=== PATIENT | male | born 1940 | race Caucasian/White ===

== ENCOUNTER 2016-08-17 16:54 | Inpatient (IN) ==
[2016-08-17] MEDS ORDERED: Naloxone 0.4 MG/ML INJ IVP PRN (20:12)
[2016-08-17] MEDS ORDERED: Ondansetron 4 MG/2 ML VIAL IVP PRN (20:12)
[2016-08-17] MEDS ORDERED: Acetaminophen 325 MG TABLET PO PRN (20:12)
--- NOTE | 2016-08-17 20:22 | Internal Med History&Physical ---
Date of Encounter: 08/17/16 Time of Encounter: 19:45 Assessment and Plan (1) Anemia Current visit: Yes Status: Acute Acute blood loss anemia due to likely diverticular lower GI bleed. Hb improved to 9.2 after 2units PRBC transfusion; bleeding currently controlled; continue to monitor Hb closely; continue to hold ASA and Brilinta for now; Qualifiers: Anemia type: other cause Other causes of anemia: acute posthemorrhagic Qualified Code(s): D62 - Acute posthemorrhagic anemia (2) Diverticulitis Current visit: Yes Status: Acute CT abdomen shows possible diverticulitis. Continue IV Ciprofloxacin and Flagyl; diet as tolerated; needs outpatient Colonoscopy after acute inflammation subsides; Qualifiers: Diverticulitis site: large intestine Diverticulitis bleeding: with bleeding Diverticulitis complication: without perforation or abscess Qualified Code(s): K57.33 - Diverticulitis of large intestine without perforation or abscess with bleeding (3) Coronary artery disease Current visit: Yes Status: Chronic Hold ASA and Brilinta for now due to active GI bleed; continue statin; Qualifiers: Coronary Disease-Associated Artery/Lesion type: [place] artery [place] vs. transplanted heart: [place] heart Associated angina: without angina Qualified Code(s): I25.10 - Atherosclerotic heart disease of [place] coronary artery without angina pectoris (4) Gout Current visit: Yes Status: Chronic Qualifiers: Gout site: unspecified site Gout etiology: unspecified cause Chronicity: chronic Presence of tophus: without tophus Qualified Code(s): M1A.9XX0 - Chronic gout, unspecified, without tophus (tophi) (5) GERD (gastroesophageal reflux disease) Current visit: Yes Status: Chronic Qualifiers: Esophagitis presence: esophagitis presence not specified Qualified Code(s) : K21.9 - Gastro-esophageal reflux disease without esophagitis (6) HTN (hypertension) Current visit: Yes Status: Chronic BP well-controlled; resume home meds; Qualifiers: Hypertension type: essential hypertension Qualified Code(s): I10 - Essential (primary) hypertension (7) COPD (chronic obstructive pulmonary disease) Current visit: Yes Status: Chronic not in acute exacerbation; continue bronchodilators and supplemental O2 PRN; Qualifiers: COPD type: chronic bronchitis Chronic bronchitis type: unspecified Qualified Code(s): J42 - Unspecified chronic bronchitis Internal Medicine - H&P: HPI Chief complaint: Hematochezia Admitted From: Hospital to Hospital Transfer Plans for Post Hospital Care: Home History of present illness: Mr. Klein is a 75 year old male presenting with c/o- bloody diarrhea since 2 days. Patient has been admitted at [facility] overnight and has been transferred to [place] per patient request. He reports having sudden onset of hematochezia/bright red bleeding per rectum with intermittent suspected clots along with brown bowel movements; diarrhea about 5-6 times/day. no melena, nausea, vomiting. He reports mild diffuse abdominal discomfort but no severe or specific pain. No fever/chills. No similar previous episodes but he did have h/o - bleeding gastric ulcers in the past. Last colonoscopy was 5-6 years ago, which showed internal hemorrhoids per patient. Patient had a significant drop in Hb to less than 7 and received 2units PRBC transfusion at [place]. Past Med Surg Social Fam HX - Past Medical History Medical history: COPD, coronary artery disease, GERD, GI bleed, hyperlipidemia, hypertension, myocardial infarction Psychiatric history: no psych history - Past Surgical History Surgical History: angioplasty/stent - Social History Smoking Status: Former smoker Smokeless Tobacco Status: No Alcohol use: none Drug use: none Occupational status: retired Current living situation: Home, With Family Activity Level: Independent ambulation Recent Out of Country Travel Within the Last 8 Weeks: No Exposure or Possible Exposure to Illness During Travel: No - Family History Mother Living Status: Age at : 92 Cause of : Skin Cancer Hx Family Cardiac Disorders: Yes Hx Family Respiratory Disorders: Yes (COPD) Hx Family Cancer: Yes (Skin, throat) Hx Family GI Disorders: No Hx Family Genitourinary Disorders: No Hx Family Endocrine Disorder: No Hx Family Musculoskeletal Disorders: No Hx Family Neuromuscular Disorders: No Hx Family Neurologic Disorders: No Hx Family HEENT Disorders: Yes Hx Family Autoimmune Disorders: No Hx Family Reproductive Disorders: No Hx Family Psychosocial Disorders: No Hx Family Medical Disorders: No Internal Medicine - H&P: Meds Atorvastatin [Lipitor] 40 mg PO HS 12/24/15 [History] Carvedilol 3.125 mg PO BID 12/24/15 [History] Nitroglycerin [Nitrostat] 0.4 mg SL Q5M PRN 12/24/15 [History] Omeprazole [PriLOSEC] 20 mg PO BID 12/24/15 [History] Furosemide [Lasix] 20 mg PO DAILY 03/30/16 [History] Potassium Chloride [Klor-Con Sprinkle] 10 meq PO DAILY 03/30/16 [History] Allopurinol [Zyloprim] 300 mg PO DAILY 08/16/16 [History] Aspirin Enteric Coated [Aspirin EC] 81 mg PO DAILY 08/17/16 [History] Ticagrelor [Brilinta] 90 mg PO BID 08/17/16 [History] Allergies No Known Allergies Allergy (Verified 02/09/16 13:15) All Systems PM: A 10-system review of systems was performed and is negative for pertinent findings except as documented above in the HPI. - Constitutional Constitutional: no chills, no fever(s), no night sweats - EENT Eyes: no change in vision, no discharge, no pain, no photophobia Ears: no ear discharge, no ear pain, no tinnitus Nose, mouth and throat: no dysphagia, no nasal discharge, no neck pain, no sore throat - Cardiovascular Cardiovascular ROS IM: no chest pain, no diaphoresis, no dyspnea, no lightheadedness, no palpitations, no syncope - Respiratory Respiratory: no cough, no dyspnea, no wheezing, no excessive phlegm production - Gastrointestinal Gastrointestinal: abdominal pain, diarrhea, hematochezia, loose stools - Musculoskeletal Musculoskeletal ROS IM: no numbness, no tingling - Integumentary Integumentary IM: no rash, no unusual bruising - Neurological Neurological ROS: no confusion, no convulsions, no focal weakness, no numbness, no tingling, no tremor(s) - Hematologic/Lymphatic Hematologic/Lymphatic: no easy bruising - Constitutional Vitals: Temp Pulse Resp BP Pulse Ox 98.5 F 77 16 131/74 99 08/17/16 18:30 08/17/16 18:30 08/17/16 18:30 08/17/16 18:30 08/17/16 18:30 General appearance: Present: A&O X 3, answers questions appropriately - Respiratory Respiratory exam: Present: CTAB. Absent: accessory muscle use, rales, rhonchi, wheezes - Cardiovascular Cardiovascular exam: Present: RRR, +S1, +S2. Absent: diastolic murmur, gallop, rubs, systolic murmur - GI/Abdominal GI/Abdominal exam: Present: normal bowel sounds, soft (obese, mild diffuse tenderness, no guarding/rigidity), no peritoneal signs. Absent: distended, tenderness - Extremities Exam Extremities exam: Present: full ROM, warm, radial pulses palpable and symetrical. Absent: calf tenderness, cyanotic, pedal edema - Neurological Exam Neurological exam: Present: CN II-XII intact, oriented X3, no focal deficits. Absent: pronater drift, facial droop, speech deficit - Skin Skin exam: Present: dry, intact
[2016-08-17] MEDS: MetroNIDAZOLE 500 MG/100 ML 500 MG/100 ML BAG IVPB SCH (23:42)
[2016-08-18 06:27] LABS: BUN/Creatinine Ratio 17 (6-26); Blood Urea Nitrogen 15 mg/dL (8-26); Calcium 8.4 mg/dL (8.6-10.8); Carbon Dioxide 22 mEq/L (19-29); Chloride 109 mEq/L (98-109); Glucose 98 mg/dL (70-99); Osmolality,Calculated 289 (280-300); Potassium 3.3 mEq/L (3.5-4.5); Sodium 139 mEq/L (136-145); eGFR For African Americans > 60 (> 60); eGFR For Non-African Americans > 60 (> 60)
[2016-08-18 06:39] LABS: Basophils % 0.4 %; Hemoglobin 8.4 g/dL (12.9-16.9); Red Cell Distribution Width 16.8 % (11.5-14.5)
[2016-08-18 06:43] LABS: Eosinophils # 0.2 K/mcL (0.0-0.6); Eosinophils % 4.6 %; Hematocrit 24.5 % (37.5-50.1); Immature Granulocytes % 0.6 % (0-4); Immature Platelets 6.8 % (1.1-6.1); Lymphocytes # 1.5 K/mcL (0.6-4.6); Lymphocytes % 30.7 %; Mean Corpuscular HGB Conc 34.3 g/dL (31.6-35.5); Mean Corpuscular Hemoglobin 29.1 pg (28.0-33.3); Mean Corpuscular Volume 84.8 fL (83.0-100.0); Mean Platelet Volume 12.2 fL (9.4-12.4); Monocytes # 0.5 K/mcL (0.0-1.3); Monocytes % 10.6 %; Neutrophils # 2.6 K/mcL (1.6-8.9); Red Blood Count 2.89 M/mcL (4.19-5.50); Segmented Neutrophils % 53.1 %
[2016-08-18 07:15] LABS: Platelet Count 93 K/mcL (140-400)
[2016-08-18] MEDS: MetroNIDAZOLE 500 MG/100 ML 500 MG/100 ML BAG IVPB SCH ×3 (07:56→23:41)
--- NOTE | 2016-08-18 09:17 | Internal Med Progress Note ---
Date of Encounter: 08/18/16 Time of Encounter: 09:13 - Assessment and plan (1) Thrombocytopenia Current Visit: Yes Status: Acute Assessment and plan: Chart review-patient's baseline PLT >200 PLT today 93 Obtain LFT Continue to monitor Possibly secondary to bleed Will transfuse if bleeding recurs, or PLT <50K Recheck CBC today p.m (2) Anemia Current Visit: Yes Status: Acute Assessment and plan: Blood loss anemia from LGIB from hemorrhoids/diverticulitis s/p 1 unit RBC Continue to monitor Hb Possible d/c a.m if Hb remains stable Qualifiers: Anemia type: other cause Other causes of anemia: acute posthemorrhagic Qualified Code(s): D62 - Acute posthemorrhagic anemia (3) Diverticulitis Current Visit: Yes Status: Acute Assessment and plan: Afebrile, no leukocytosis Continue cipro/flagyl Cardiac diet Qualifiers: Diverticulitis site: large intestine Diverticulitis bleeding: with bleeding Diverticulitis complication: without perforation or abscess Qualified Code(s): K57.33 - Diverticulitis of large intestine without perforation or abscess with bleeding (4) COPD (chronic obstructive pulmonary disease) Current Visit: Yes Status: Chronic Assessment and plan: Chronic, stable [place] prn Qualifiers: COPD type: chronic bronchitis Chronic bronchitis type: unspecified Qualified Code(s): J42 - Unspecified chronic bronchitis (5) Coronary artery disease Current Visit: Yes Status: Chronic Assessment and plan: Resume ASA/Brilinta/Statin Patient with 3 PILAR 12/2015 Bleeding has stopped for now Benefits of resuming brilinta/ASA outweigh the risks Monitor HB closely No need for cardio eval at this time Qualifiers: Coronary Disease-Associated Artery/Lesion type: [place] artery [place] vs. transplanted heart: [place] heart Associated angina: without angina Qualified Code(s): I25.10 - Atherosclerotic heart disease of [place] coronary artery without angina pectoris (6) GERD (gastroesophageal reflux disease) Current Visit: Yes Status: Chronic Assessment and plan: Resume home meds Qualifiers: Esophagitis presence: esophagitis presence not specified Qualified Code(s) : K21.9 - Gastro-esophageal reflux disease without esophagitis (7) Gout Current Visit: Yes Status: Chronic Assessment and plan: Resume home meds Qualifiers: Gout site: unspecified site Gout etiology: unspecified cause Chronicity: chronic Presence of tophus: without tophus Qualified Code(s): M1A.9XX0 - Chronic gout, unspecified, without tophus (tophi) (8) HTN (hypertension) Current Visit: Yes Status: Chronic Assessment and plan: Controlled, continue current meds Qualifiers: Hypertension type: essential hypertension Qualified Code(s): I10 - Essential (primary) hypertension (9) Lower gastrointestinal hemorrhage Current Visit: Yes Status: Acute Assessment and plan: As in anemia Presence of diverticulitis, for colonoscopy as out-patient when diverticulitis resolves (10) Obesity Current Visit: Yes Status: Chronic Assessment and plan: Lifestyle modification Qualifiers: Obesity type: due to excess calories Obesity severity: unspecified obesity severity Qualified Code(s): E66.09 - Other obesity due to excess calories - Subjective Interval history: Seen and evaluated at bedside 75 M with PMH of Internal hemorrhoids, last colonoscopy 5 years ago (said to be normal save for hemorrhoids), CAD s/p stents placed in 12/2015 (X3), on ASA/ Brilinta, Gout, GERD Patient was transferred here from [place] for management of acute blood loss anemia from LGIB, and diverticulitis ASA/Brilinta held by referral center Patient reports he has not had any BM since 08/15 except bloody stools, however reports he has not had any more bleeding since arrival here Hb at referral center was 6.4, s/p 1 unit transfusion HB today 8.4, PLT 93K - Constitutional Vitals: Temp Pulse Resp BP Pulse Ox 98.0 F 71 16 137/70 98 08/18/16 06:56 08/18/16 06:56 08/18/16 06:56 08/18/16 06:56 08/18/16 06:56 General appearance: Present: A&O X 3, pleasant, no acute distress, answers questions appropriately - Head Head exam: Present: atraumatic, normocephalic - Eye Eye exam: Present: PERRL, conjuntiva pink, sclera anicteric Pupils: Present: PERRL - Neck Neck exam general surgery: Present: supple, trachea midline. Absent: lymphadenopathy - Respiratory Respiratory exam: Present: CTAB. Absent: accessory muscle use, rales, rhonchi, wheezes - Cardiovascular Cardiovascular exam: Present: RRR, +S1, +S2. Absent: diastolic murmur, gallop, rubs, systolic murmur - GI/Abdominal GI/Abdominal exam: Present: normal bowel sounds, soft, tenderness (vague tenderness, generalized. ), no peritoneal signs. Absent: distended - Extremities Exam Extremities exam: Present: warm, radial pulses palpable and symetrical. Absent : calf tenderness, cyanotic, pedal edema - Neurological Exam Neurological exam: Present: alert, CN II-XII intact, oriented X3, no focal deficits. Absent: pronater drift, facial droop, speech deficit - Skin Skin exam: Present: dry, intact Internal Medicine: Result - Labs CBC & Chem 7: 08/18/16 05:40 08/18/16 05:40 Labs: Short CBC 08/18/16 Range/Units 05:40 WBC 4.8 (4.3-11.1) K/mcL Hgb 8.4 L (12.9-16.9) g/dL Hct 24.5 L (37.5-50.1) % Plt Count 93 L (140-400) K/mcL Neutrophils # 2.6 (1.6-8.9) K/mcL BMP 08/18/16 05:40 Sodium 139 Potassium 3.3 L Chloride 109 Carbon Dioxide 22 BUN 15 Creatinine 0.88 Glucose 98 Calcium 8.4 L Consult Discharge Plan - Plan Referrals: Vadim Jacobsen DO [Primary Care Provider] -
[2016-08-18] MEDS: Aspirin Enteric Coated 81 MG Tablet PO SCH (11:37)
[2016-08-18] MEDS: *HR* Ticagrelor 90 MG TABLET PO SCH ×2 (11:37→21:09)
[2016-08-18 17:28] LABS: Basophils % 0.2 %; Hemoglobin 8.4 g/dL (12.9-16.9)
[2016-08-18 17:29] LABS: Eosinophils # 0.2 K/mcL (0.0-0.6); Eosinophils % 3.9 %; Hematocrit 24.7 % (37.5-50.1); Immature Granulocytes % 0.9 % (0-4); Immature Platelets 7.1 % (1.1-6.1); Lymphocytes # 1.4 K/mcL (0.6-4.6); Lymphocytes % 30.6 %; Mean Corpuscular Hemoglobin 29.4 pg (28.0-33.3); Mean Corpuscular Volume 86.4 fL (83.0-100.0); Mean Platelet Volume 12.5 fL (9.4-12.4); Monocytes # 0.5 K/mcL (0.0-1.3); Monocytes % 10.2 %; Neutrophils # 2.4 K/mcL (1.6-8.9); Red Blood Count 2.86 M/mcL (4.19-5.50); Red Cell Distribution Width 16.9 % (11.5-14.5); Segmented Neutrophils % 54.2 %
[2016-08-18 17:32] LABS: Platelet Count 94 K/mcL (140-400)
[2016-08-18 17:47] LABS: Platelet Estimate Decreased (Normal); Polychromasia 1+ (Not Present)
[2016-08-18 17:49] LABS: Burr Cells 1+ (Not Present)
[2016-08-18 20:52] LABS: Albumin 2.8 g/dL (3.5-5.0); Albumin/Globulin Ratio 1.3 (1.1-2.2); Bilirubin,Direct 0.3 mg/dL (0.0-0.5); Bilirubin,Indirect 0.4 mg/dL (0.0-1.2); Bilirubin,Total 0.7 mg/dL (0.2-1.2); Globulin 2.1 g/dL (2.4-3.5); Total Protein 4.9 g/dL (6.0-8.3)
[2016-08-19 03:54] LABS: Basophils % 0.4 %; Eosinophils # 0.2 K/mcL (0.0-0.6); Eosinophils % 3.8 %; Hematocrit 25.3 % (37.5-50.1); Hemoglobin 8.5 g/dL (12.9-16.9); Immature Granulocytes % 0.6 % (0-4); Lymphocytes # 1.6 K/mcL (0.6-4.6); Lymphocytes % 29.7 %; Mean Corpuscular HGB Conc 33.6 g/dL (31.6-35.5); Mean Corpuscular Volume 86.3 fL (83.0-100.0); Mean Platelet Volume 12.1 fL (9.4-12.4); Monocytes # 0.5 K/mcL (0.0-1.3); Monocytes % 10.1 %; Neutrophils # 2.9 K/mcL (1.6-8.9); Platelet Count 103 K/mcL (140-400); Red Blood Count 2.93 M/mcL (4.19-5.50); Red Cell Distribution Width 16.9 % (11.5-14.5); Segmented Neutrophils % 55.4 %
[2016-08-19 03:58] LABS: BUN/Creatinine Ratio 13 (6-26); Blood Urea Nitrogen 12 mg/dL (8-26); Calcium 8.5 mg/dL (8.6-10.8); Carbon Dioxide 23 mEq/L (19-29); Chloride 110 mEq/L (98-109); Glucose 99 mg/dL (70-99); Osmolality,Calculated 290 (280-300); Potassium 3.7 mEq/L (3.5-4.5); Sodium 140 mEq/L (136-145); eGFR For African Americans > 60 (> 60); eGFR For Non-African Americans > 60 (> 60)
[2016-08-19 07:10] VITALS: BP 129/71
[2016-08-19] MEDS: MetroNIDAZOLE 500 MG/100 ML 500 MG/100 ML BAG IVPB SCH (08:25)
[2016-08-19] MEDS: *HR* Ticagrelor 90 MG TABLET PO SCH (08:26)
[2016-08-19] MEDS: Aspirin Enteric Coated 81 MG Tablet PO SCH (08:26)
--- NOTE | 2016-08-19 09:25 | Discharge Summary ---
Date of Encounter: 08/19/16 Time of Encounter: 09:24 - Discharge Diagnosis (1) Thrombocytopenia Priority: Primary Status: Acute (2) Anemia Priority: Primary Status: Acute Qualifiers: Anemia type: other cause Other causes of anemia: acute posthemorrhagic Qualified Code(s): D62 - Acute posthemorrhagic anemia (3) Diverticulitis Priority: Primary Status: Acute Qualifiers: Diverticulitis site: large intestine Diverticulitis bleeding: with bleeding Diverticulitis complication: without perforation or abscess Qualified Code(s): K57.33 - Diverticulitis of large intestine without perforation or abscess with bleeding (4) COPD (chronic obstructive pulmonary disease) Priority: Secondary Status: Chronic Qualifiers: COPD type: chronic bronchitis Chronic bronchitis type: unspecified Qualified Code(s): J42 - Unspecified chronic bronchitis (5) Coronary artery disease Priority: Secondary Status: Chronic Qualifiers: Coronary Disease-Associated Artery/Lesion type: [place] artery [place] vs. transplanted heart: [place] heart Associated angina: without angina Qualified Code(s): I25.10 - Atherosclerotic heart disease of [place] coronary artery without angina pectoris (6) GERD (gastroesophageal reflux disease) Priority: Secondary Status: Chronic Qualifiers: Esophagitis presence: esophagitis presence not specified Qualified Code(s) : K21.9 - Gastro-esophageal reflux disease without esophagitis (7) Gout Priority: Secondary Status: Chronic Qualifiers: Gout site: unspecified site Gout etiology: unspecified cause Chronicity: chronic Presence of tophus: without tophus Qualified Code(s): M1A.9XX0 - Chronic gout, unspecified, without tophus (tophi) (8) HTN (hypertension) Priority: Secondary Status: Chronic Qualifiers: Hypertension type: essential hypertension Qualified Code(s): I10 - Essential (primary) hypertension (9) Lower gastrointestinal hemorrhage Priority: Primary Status: Suspected (10) Obesity Priority: Secondary Status: Chronic Qualifiers: Obesity type: due to excess calories Obesity severity: unspecified obesity severity Qualified Code(s): E66.09 - Other obesity due to excess calories - Discharge Medications Prescriptions: Ciprofloxacin [Cipro] 500 mg PO BID #10 tablet metroNIDAZOLE [Flagyl] 500 mg PO Q8H #15 tablet Home Medications: Atorvastatin [Lipitor] 40 mg PO HS 12/24/15 [History] Carvedilol 3.125 mg PO BID 12/24/15 [History] Nitroglycerin [Nitrostat] 0.4 mg SL Q5M PRN 12/24/15 [History] Omeprazole [PriLOSEC] 20 mg PO BID 12/24/15 [History] Furosemide [Lasix] 20 mg PO DAILY 03/30/16 [History] Potassium Chloride [Klor-Con Sprinkle] 10 meq PO DAILY 03/30/16 [History] Allopurinol [Zyloprim] 300 mg PO DAILY 08/16/16 [History] Aspirin Enteric Coated [Aspirin EC] 81 mg PO DAILY 08/17/16 [History] Ticagrelor [Brilinta] 90 mg PO BID 08/17/16 [History] Ciprofloxacin [Cipro] 500 mg PO BID #10 tablet 08/19/16 [Rx] metroNIDAZOLE [Flagyl] 500 mg PO Q8H #15 tablet 08/19/16 [Rx] Allergies/Adverse Reactions: Allergies No Known Allergies Allergy (Verified 02/09/16 13:15) Date of admission: 08/18/16 03:13 Primary care physician: Vadim Jacobsen Discharging clinician: Mono Jaimes Anticipated date of discharge: 08/19/16 - Patient Status Disposition: Home, Self-Care Condition: Fair Functional capacity at discharge: independent ambulation Overall status at discharge: patient is back to baseline - Discharge Instructions Follow Up With: Vadim Jacobsen DO [Primary Care Provider] - 08/24/16 1:30 pm Additional Instructions: FOLLOW UP WITH PCP FOLLOW UP WITH CARDIOLOGY ENSURE APPOINTMENT FOR COLONOSCOPY AFTER COMPLETION OF ANTIBIOTICS, 4-6 WEEKS , PCP SHOULD INITIATE THIS REPRESENT TO ER IF RECTAL BLEEDING RECURS,IS PROFUSE, DEVELOPMENT OF FEVER, BLOODY DIARRHEA - Diet and Activity Diet: low fat, low cholesterol, low salt diet Interval History: See below Hospital course: Mr. Klein is a 75 M with PMH of Internal hemorrhoids, last colonoscopy 5 years ago (said to be normal save for hemorrhoids), CAD s/p stents placed in 2015 (X3), on ASA/Brilinta, Gout, GERD, HTN, Obesity Patient was transferred to [facility] from [place] for management of acute blood loss anemia from LGIB, and diverticulitis ASA/Brilinta had been held by referral center prior to transfer Patient had presented with abdominal discomfort and bloody diarrhea which staretd 08/15 , 2 days prior to presentation. He did not have fever or chills, melena , hematemesis or hematuria Patient denies history of coagulopathy. Hb at referral center was 6.4, s/p 1 unit transfusion HB improved to 8.4 and had remained stable throughtout admission at ~8.4. , PLT count was 93 thousand on admission, improved to 103 thousand this a.m Patient did not have any more bloddy stools since presentation here. His DaPT has been resumed since arrival and his HB and PLT have improved He has received ~48 hrs of IV ciprofloxacin and Flagyl, and is discharged home to continue for total of 7 days Patient is educated about his diagnosis and is encouraged to follow up with his PCP, for repeat colonoscopy 4-6 weeks after antibiotic therapy Educated on signs of worsening diverticulitis/anemia Follow up with PCP All home meds resumed and continued Plan of care was discussed, verbalized understanding - Time Spent with Patient Total time spent providing and/or coordinating discharge services: Less than 30 minutes - Constitutional Vitals: Temp Pulse Resp BP Pulse Ox 98.2 F 77 18 129/71 97 08/19/16 07:09 08/19/16 07:09 08/19/16 07:09 08/19/16 07:09 08/19/16 07:09 General appearance: Present: A&O X 3, pleasant, no acute distress, answers questions appropriately - Head Head exam: Present: atraumatic, normocephalic - Eye Eye exam: Present: PERRL, conjuntiva pink, sclera anicteric Pupils: Present: PERRL - Neck Neck exam general surgery: Present: supple, trachea midline. Absent: lymphadenopathy - Respiratory Respiratory exam: Present: CTAB. Absent: accessory muscle use, rales, rhonchi, wheezes - Cardiovascular Cardiovascular exam: Present: RRR, +S1, +S2. Absent: diastolic murmur, gallop, rubs, systolic murmur - GI/Abdominal GI/Abdominal exam: Present: normal bowel sounds, soft, no peritoneal signs. Absent: distended, tenderness - Extremities Exam Extremities exam: Present: warm, radial pulses palpable and symetrical. Absent : calf tenderness, cyanotic, pedal edema - Neurological Exam Neurological exam: Present: alert, CN II-XII intact, oriented X3, no focal deficits. Absent: pronater drift, facial droop, speech deficit - Skin Skin exam: Present: dry, intact - VTE Documentation of Mechanical Device: Intermittent pneumatic compression device
== END 2016-08-19 11:02 | disposition home or self-care (01) | DRG 378 ==
LOC: 3ANU
PROVIDERS: ADMIT Hospitalist; ATTEND Internal Medicine